=== PATIENT | female | born 1985 | race American Indian/Alaskan Native ===

== ENCOUNTER 2016-07-24 04:45 | Emergency (ER) | payer SELFPAY ==
[2016-07-24 05:40] LABS: Basophils % (Auto) 0.5 % (0.0-1.8); Eosinophils % (Auto) 1.7 % (0.0-4.3); Hematocrit 39.6 % (30.3-42.9); Hemoglobin 12.9 gm/dl (10.1-14.3); Mean Corpuscular HGB Conc 33 % (30-34); Mean Corpuscular Hemoglobin 28 pg (28-32); Mean Corpuscular Volume 86 fl (79-97); Platelet Count 193 K/mm3 (140-440); Red Blood Count 4.62 M/mm3 (3.65-5.03); Red Cell Distribution Width 13.8 % (13.2-15.2); White Blood Count 5.7 K/mm3 (4.5-11.0)
[2016-07-24 08:13] LABS: Bilirubin,Urine NEG (Negative); Blood,Urine LG (Negative); Ketones,Urine NEG (Negative); Leukocyte Esterase,Urine NEG (Negative); Nitrite,Urine NEG (Negative); Protein,Urine <15 mg/dL mg/dL (Negative); Urobilinogen,Urine < 2.0 mg/dL (<2.0)
--- NOTE | 2016-07-24 08:31 | Ultrasound Report ---
ULTRASOUND OB LESS THAN 14 WEEKS FETUS ULTRASOUND OB TRANSVAGINAL HISTORY: Vaginal bleeding during , data hCG level measures 765. TECHNIQUE: Transabdominal and transvaginal ultrasound. The uterus measures 11 x 5 x 5 cm. No uterine mass is appreciated. The endometrial stripe appears thickened on the transvaginal images measuring up to 2 cm. No intrauterine is demonstrated. Spontaneous with retained products of conception cannot be excluded. The right ovary is not visualized. The left ovary contains a 1.5 cm cyst and a large unilocular 5.2 cm cyst. No pelvic fluid collection. IMPRESSION: No intrauterine is visualized. The endometrial stripe is thickened on the transvaginal images concerning for spontaneous with retained products of conception. Please correlate with the patient's clinical presentation. Left ovarian cysts.
[2016-07-24] MEDS ORDERED: NACL 0.9% 1000 ML IV ONE (10:29)
--- NOTE | 2016-07-24 10:43 | Emergency Department Report ---
HPI - General Chief Complaint: Vaginal Bleeding Time Seen by Provider: 07/24/16 10:20 - HPI HPI: Chief complaint: Vaginal bleeding HPI: Patient is a 31-year-old female with no previous pregnancies he states her last menstrual period started 06/09/2016 and had a positive home test. Patient states she occasionally vomits after eating for the last several days and for the last 2 weeks had polyuria and polydipsia. Patient has no previous history of diabetes states her father does have diabetes. Patient is unaware for mother had gestational diabetes. Patient states she has intermittent lower abdominal cramping that is very mild and none currently. Patient states she had slight spotting yesterday but has not had any bleeding today. Mode of arrival: private car Source: Patient Began: Yesterday Duration: One day Context: See above Quality: No pain currently Severity: 0 out of 10 Improved with: Nothing Worsened with: Nothing Associated signs and symptoms: See above ED Past Medical Hx - Past Medical History Previous Medical History?: No - Family History Family history: diabetes (other) - Social History Smoking Status: Former Smoker Substance Use Type: Alcohol (occasional currently not drinking) - Medications Home Medications: Home Medications Medication Instructions Recorded Confirmed Last Taken Type glyBURIDE [Diabeta] 5 mg PO QHS #30 tablet 07/24/16 Unknown Rx ED Review of Systems ROS: Stated complaint: VAG BLEED, 6 WKS PREG Other details as noted in HPI ROS Constitutional: No fever ENT: No uri symptoms Cardiovascular: No chest pain Respiratory: No sob or cough GI: No diarrhea : No dysuria or urgency, Skin: No rash Neuro: No focal weakness or numbness Psych: No depression Dajuan/lymph: No edema Physical Exam - Physical Exam Vital Signs: Vital Signs 07/24/16 04:58 Temperature 98.1 F Pulse Rate 88 Respiratory 20 Rate Blood Pressure 154/104 O2 Sat by Pulse 100 Oximetry Physical Exam: GENERAL: The patient is an obese -Micronesian female in no acute distress. HEENT: Normocephalic. Atraumatic. Extraocular motions are intact. Patient has moist mucous membranes. NECK: Supple. No meningitic signs are noted. There is no adenopathy noted. CHEST/LUNGS: Clear to auscultation. There is no respiratory distress noted. HEART/CARDIOVASCULAR: Regular. There is no tachycardia. There is no gallop rub or murmur. ABDOMEN: Abdomen is soft, nontender. Patient has normal bowel sounds. There is no abdominal distention. SKIN: There is no rash. There is no edema. There is no diaphoresis. NEURO: The patient is awake, alert, and oriented. The patient is cooperative. The patient has no focal neurologic deficits. The patient has normal speech. MUSCULOSKELETAL: There is no tenderness or deformity. There is no limitation range of motion. There is no evidence of acute injury. ED Course Vital Signs 07/24/16 04:58 Temperature 98.1 F Pulse Rate 88 Respiratory 20 Rate Blood Pressure 154/104 O2 Sat by Pulse 100 Oximetry - Reevaluation(s) Reevaluation #1: 07/24/16 10:46 Patient's Accu-Chek was 340 and 2 L of normal saline will be started on the patient. 07/24/16 14:07 Repeat blood sugar after 2 L of normal saline and 5 units of regular insulin was 280. Patient given a third liter of normal saline. ED Medical Decision Making - Lab Data Result diagrams: 07/24/16 05:13 07/24/16 10:39 Laboratory Tests 07/24/16 07/24/16 07/24/16 05:13 11:05 Unknown VBG pH 7.351 HCG, Quant 765.1 H Ur Specific [place] 1.031 H Urine Protein <15 mg/dl Urine Glucose (UA) >=500 Urine Ketones Neg Urine Blood Lg Ur Leukocyte Esterase Neg Urine WBC (Auto) 1.0 Urine RBC (Auto) 2.0 Critical care attestation.: If time is entered above; I have spent that time in minutes in the direct care of this critically ill patient, excluding procedure time. ED Disposition Clinical Impression: Early stage of , Vaginal bleeding before 22 weeks gestation, Diabetes mellitus, new onset Disposition: DISCHARGED TO HOME OR SELFCARE Is pt being admited?: No Does the pt Need Aspirin: No Instructions: Ectopic (ED), Threatened Miscarriage (ED), Diabetes Mellitus Type 2 in Adults (ED) Prescriptions: glyBURIDE [Diabeta] 5 mg PO QHS #30 tablet Referrals: [facility] [Provider Group] - 07/26/16 9:00 am (You have an appointment with Dr. Akers at 9:00 on morning. You need to follow up.) Time of Disposition: 14:05
[2016-07-24 11:12] LABS: Anion Gap 18 mmol/L; Blood Urea Nitrogen 6 mg/dL (7-17); Calcium 9.1 mg/dL (8.4-10.2); Carbon Dioxide 23 mmol/L (22-30); Chloride 94.6 mmol/L (98-107); Glucose 362 mg/dL (65-100); Potassium 4.1 mmol/L (3.6-5.0); Sodium 131 mmol/L (137-145)
[2016-07-24] MEDS ORDERED: NACL 0.9% 1000 ML 1,000 ML ONE (13:11)
[2016-07-24] MEDS ORDERED: NACL 0.9% 1000 ML 1,000 ML IV ONE (13:28)
[2016-07-24 13:47] LABS: B-Hydroxybutyrate 1.2 mg/dL (0.2-2.8)
[2016-07-24 14:26] VITALS: BP 124/72
== END 2016-07-24 14:25 | disposition home or self-care (01) ==
LOC: ED 04:45
DX: O20.9 Hemorrhage in early pregnancy, unspecified (principal); O24.911 Unspecified diabetes mellitus in pregnancy, first trimester; Z3A.01 Less than 8 weeks gestation of pregnancy; O99.331 Smoking (tobacco) complicating pregnancy, first trimester
CPT/HCPCS: 36415; 76801; 76817; 80048; 81001; 82010; 82805; 82962; 84702; 85025; 86850; 86900; 86901; 96361; 96374; 99284; J7030; J1815

== ENCOUNTER 2016-08-09 03:12 | Emergency (ER) | payer MEDICAID ==
[2016-08-09 04:14] LABS: Basophils % (Auto) 0.6 % (0.0-1.8); Eosinophils % (Auto) 2.5 % (0.0-4.3); Hematocrit 36.4 % (30.3-42.9); Hemoglobin 11.9 gm/dl (10.1-14.3); Mean Corpuscular HGB Conc 33 % (30-34); Mean Corpuscular Hemoglobin 28 pg (28-32); Mean Corpuscular Volume 86 fl (79-97); Platelet Count 218 K/mm3 (140-440); Red Blood Count 4.23 M/mm3 (3.65-5.03); Red Cell Distribution Width 13.8 % (13.2-15.2); White Blood Count 6.3 K/mm3 (4.5-11.0)
[2016-08-09 04:25] LABS: Anion Gap 19 mmol/L; Blood Urea Nitrogen 10 mg/dL (7-17); Carbon Dioxide 20 mmol/L (22-30); Chloride 100.1 mmol/L (98-107); Glucose 155 mg/dL (65-100); Sodium 135 mmol/L (137-145)
--- NOTE | 2016-08-09 05:40 | Ultrasound Report ---
FINAL REPORT PROCEDURE: US OB EARLY TECHNIQUE: Real-time transabdominal sonography of the uterus, placenta, amniotic fluid, adnexa, and fetus was performed with image documentation. Measurements were obtained to determine age/size. M-mode Doppler was used to document heartbeat. HISTORY: /VAG BLEEDING COMPARISON: No prior studies are available for comparison. FINDINGS: There is an intrauterine gestational sac measuring 11 millimeters corresponding to an estimated gestational age of 5 weeks and 6 days. Estimated date of delivery is 04/05/2017. No pole, yolk sac or cardiac activity is identified at this time. There is suboptimal visualization of the ovaries. The uterus is unremarkable. There is no free pelvic fluid. IMPRESSION: Probable normal early intrauterine gestation. Followup is recommended.
--- NOTE | 2016-08-09 05:40 | Ultrasound Report ---
FINAL REPORT PROCEDURE: US OB TRANSVAGINAL TECHNIQUE: Real-time transvaginal sonography of the uterus, placenta, amniotic fluid, adnexa, and fetus was performed with image documentation. Measurements were obtained to determine age/size. M-mode Doppler was used to document heartbeat. CPT 54096 HISTORY: /VAG BLEEDING COMPARISON: No prior studies are available for comparison. FINDINGS: There is an intrauterine gestational sac measuring 11 millimeters corresponding to an estimated gestational age of 5 weeks and 6 days. Estimated date of delivery is 04/05/2017. No pole, yolk sac or cardiac activity is identified at this time. There is suboptimal visualization of the ovaries. The uterus is unremarkable. There is no free pelvic fluid. IMPRESSION: Probable normal early intrauterine gestation. Followup is recommended.
--- NOTE | 2016-08-09 10:34 | Emergency Department Report ---
HPI - General Chief Complaint: Vaginal Bleeding Time Seen by Provider: 08/09/16 10:19 - HPI HPI: Chief complaint: Vaginal bleeding during HPI: Patient to his and had an earlier ultrasound 2 weeks ago showing no IUP began bleeding last night. Patient is having some cramping. Patient states she used 2 pads through the night. Is patient's first . Mode of arrival: private car Source: Patient Began: Last night Duration: Continuous Context: Patient was here 2 weeks ago with spotting. Quality: Crampy Severity: 6 out of 10 Improved with: Nothing Worsened with: Nothing Associated signs and symptoms: No nausea vomiting or fever ED Past Medical Hx - Past Medical History Previous Medical History?: Yes Hx Diabetes: Yes - Surgical History Past Surgical History?: No - Social History Smoking Status: Current Some Day Smoker - Medications Home Medications: Home Medications Medication Instructions Recorded Confirmed Last Taken Type glyBURIDE [Diabeta] 5 mg PO QHS #30 tablet 07/24/16 Unknown Rx ED Review of Systems ROS: Stated complaint: POSS MISCARRIAGE Other details as noted in HPI ROS Constitutional: No fever ENT: No uri symptoms Cardiovascular: No chest pain Respiratory: No sob or cough GI: No nausea vomiting or diarrhea : No dysuria frequency or urgency, Skin: No rash Neuro: No focal weakness or numbness Psych: No depression Dajuan/lymph: No edema Physical Exam - Physical Exam Vital Signs: Vital Signs 08/09/16 08/09/16 08/09/16 03:20 08:08 08:11 Temperature 98.5 F Pulse Rate 82 Respiratory 20 Rate Blood Pressure 140/99 129/64 129/64 Blood Pressure [Left] O2 Sat by Pulse 100 100 Oximetry 08/09/16 08/09/16 08/09/16 08:21 08:27 08:28 Temperature 98.1 F Pulse Rate 88 Respiratory 18 18 Rate Blood Pressure 128/83 Blood Pressure 128/77 [Left] O2 Sat by Pulse 100 100 Oximetry Physical Exam: GENERAL: The patient is well-developed well-nourished . HEENT: Normocephalic. Atraumatic. Extraocular motions are intact. Patient has moist mucous membranes. NECK: Supple. No meningitic signs are noted. There is no adenopathy noted. CHEST/LUNGS: Clear to auscultation. There is no respiratory distress noted. HEART/CARDIOVASCULAR: Regular. There is no tachycardia. There is no gallop rub or murmur. ABDOMEN: Abdomen is soft, nontender. Patient has normal bowel sounds. There is no abdominal distention. Pelvic exam: Os closed a few blood clots and minimal bleeding. SKIN: There is no rash. There is no edema. There is no diaphoresis. NEURO: The patient is awake, alert, and oriented. The patient is cooperative. The patient has no focal neurologic deficits. The patient has normal speech. MUSCULOSKELETAL: There is no tenderness or deformity. There is no limitation range of motion. There is no evidence of acute injury. ED Course Vital Signs 08/09/16 08/09/16 08/09/16 03:20 08:08 08:11 Temperature 98.5 F Pulse Rate 82 Respiratory 20 Rate Blood Pressure 140/99 129/64 129/64 Blood Pressure [Left] O2 Sat by Pulse 100 100 Oximetry 08/09/16 08/09/16 08/09/16 08:21 08:27 08:28 Temperature 98.1 F Pulse Rate 88 Respiratory 18 18 Rate Blood Pressure 128/83 Blood Pressure 128/77 [Left] O2 Sat by Pulse 100 100 Oximetry ED Medical Decision Making - Lab Data Result diagrams: 08/09/16 03:55 08/09/16 03:55 - Radiology Data Radiology results: report reviewed (IUP 5 weeks 6 days no pole) Critical care attestation.: If time is entered above; I have spent that time in minutes in the direct care of this critically ill patient, excluding procedure time. ED Disposition Clinical Impression: Threatened miscarriage Disposition: DISCHARGED TO HOME OR SELFCARE Is pt being admited?: No Does the pt Need Aspirin: No Condition: Stable Instructions: Threatened Miscarriage (ED) Referrals: [facility] [Provider Group] - 3-5 Days Time of Disposition: 11:08
[2016-08-09 11:16] LABS: Bilirubin,Urine NEG (Negative); Blood,Urine LG (Negative); Ketones,Urine TR mg/dL (Negative); Leukocyte Esterase,Urine NEG (Negative); Nitrite,Urine NEG (Negative); Urobilinogen,Urine < 2.0 mg/dL (<2.0)
[2016-08-09 11:27] LABS: RBC,Urine > 182.0 /HPF (0.0-6.0)
[2016-08-09 12:40] VITALS: BP 122/79
== END 2016-08-09 11:09 | disposition home or self-care (01) ==
LOC: ED 03:12
DX: O20.0 Threatened abortion (principal); O24.911 Unspecified diabetes mellitus in pregnancy, first trimester; O99.331 Smoking (tobacco) complicating pregnancy, first trimester; F17.200 Nicotine dependence, unspecified, uncomplicated; Z3A.01 Less than 8 weeks gestation of pregnancy
CPT/HCPCS: 36415; 76801; 76817; 80048; 81001; 84702; 85025; 86850; 86900; 86901; 99284

== ENCOUNTER 2017-06-24 16:19 | Inpatient (IN) | payer OTHER ==
[2017-06-24] MEDS ORDERED: BRETHINE SUB-Q PRN (17:14)
[2017-06-24] MEDS ORDERED: BRETHINE IVP PRN (17:14)
[2017-06-24] MEDS ORDERED: MINERAL OIL PO PRN (17:14)
[2017-06-24] MEDS ORDERED: XYLOCAINE 2% INFILTRATI ONE (17:14)
[2017-06-24] MEDS ORDERED: ePHEDrine SULFATE IV PRN (17:14)
[2017-06-24] MEDS ORDERED: STADOL IV PRN (17:14)
--- NOTE | 2017-06-24 17:21 | History and Physical Report ---
History of Present Illness Date of admission: 06/24/17 16:19 Chief complaint: 32 yo at 37 wk+ 4d EGA with EDC of 07/11/17 sent over for induction of labor from [facility] for oligohydramnios with JYOTI of 4. She also has DM 2 which has been controlled on Metformin after the patient declined to be treated with insulin and her control has improved somewhat although she readily admits to not taking the prescribed dose of 1000mg bid but only taking 500mg bid of Metformin. BPP 8 /8 today and recent EFW was 6#1 oz. No history of SROM Cervix exam has improved from 2 weeks ago. Vertex, FT, 30% and -3 but no longer unengaged. 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 Weight (lb): 184 BMI: 37.2 BP: 120/ 90 mm Hg Ur. Protein: Trace Ur. Glucose: Negative Chief Complaint/Current Status: pt presents c/o missed period; last pap unknown ...................................................................Aziza Rai February 05, 2017 10:14 AM Menstrual History Regularity: regular Menses every: 28 days Duration: 5 LMP: 09/2016 LMP reliability: month known LMP character: normal test type: urine test Date: 02/05/2017 BC at conception: none Planned ? no EDC Calculations LMP: 02/28/2016 EDC Confirmation: 07/11/2017 Gestational Age: 17 5/7 weeks Past History : 2 Para: 0 Spont. Ab: 1 # 1 Delivery date: 08/2016 Weeks Gestation: 5 Delivery type: SAB Comments: no complications Past Medical History: Reviewed history from 08/13/2016 and no changes required: Diabetes type 2 on po meds DX 07-24-16 Past Surgical History: Reviewed history from 08/13/2016 and no changes required: Negative Past Surgical History Past Medical History Abnormal PAP: negative KOBE Exposure: negative Infertility: negative Uterine Anomaly: negative Uterine Surgery (not C/S): negative Other Gynecologic Problems: negative Social Hx: Patient is single Smoking History: Patient has never smoked. Infection History Hx of STD: none Personal hx. of genital herpes: no Partner hx. of genital herpes: no Rash, Viral, or Febrile illness since last LMP? no Varicella/Chicken Pox Status: Previous Disease TB Risk: no Genetic History Congenital Heart Defect: Mom: no Dad: no Dm Disease: Mom: no Dad: no Thalassemia Mom: no Dad: no Neural Tube Defect Mom: no Dad: no Down's Syndrome Mom: no Dad: no Martin-Sachs Mom: no Dad: no Sickle Cell Disease/Trait Mom: no Dad: no Hemophilia Mom: no Dad: no Muscular Dystrophy Mom: no Dad: no Cystic Fibrosis Mom: no Dad: no Ludwin Chorea Mom: no Dad: no Mental Retardation Mom: no Dad: no Fragile X Mom: no Dad: no Other Genetic/Chromosomal Disorder Mom: no Dad: no Child w/other defect Mom: no Dad: no Enviromental Exposures Xray Exposure: no Medication, drug, or alcohol use since LMP: no Chemical/Other Exposure: no Exposure to Cat Liter: no Hx of Parvovirus (Fifth Disease): no Occupational Exposure to Children: none Active Medications (reviewed today): GLYBURIDE 5MG () one po QHS GLYBURIDE 5 MG ORAL TABS (GLYBURIDE) VITAMINS TABS ( MV & MIN W/FE-FA TABS) Current Allergies (reviewed today): No known allergies Laboratory Results Routine Urinalysis Leukocytes: negative Nitrite: negative Urobilinogen: negative Protein: Trace Blood: negative Ketone: negative Bilirubin: negative Glucose: Negative Urine HCG: positive Review of Systems General Denies fever, chills, sweats, anorexia, fatigue, weakness, malaise, weight loss and sleep disorder. Denies nausea, vomiting, headache, swelling of legs, abdominal pain, vaginal discharge, vaginal bleeding and contractions. Denies vaginal discharge, incontinence, dysuria, hematuria, urinary frequency, amenorrhea, menorrhagia, abnormal vaginal bleeding, pelvic pain, genital sores, decreased libido, painful periods, painful sex, urinary urgency, hot flashes, vaginal dryness, vaginal itching and vaginal odor. CV Denies chest pains, palpitations, syncope, dyspnea on exertion, orthopnea, PND and peripheral edema. Resp Denies cough, dyspnea at rest, excessive sputum, hemoptysis, wheezing and pleurisy. GI Denies nausea, vomiting, diarrhea, constipation, change in bowel habits, abdominal pain, melena, hematochezia, jaundice, gas/bloating, indigestion/ heartburn, dysphagia and odynophagia. Endo Denies cold intolerance, heat intolerance, polydipsia, polyphagia, polyuria and unusual weight change. Breast Denies left breast lump, right breast lump, nipple discharge, bloody discharge from nipple, breast pain, abnormal mammogram and breast enlargement. MS Denies back pain, joint pain, joint swelling, muscle cramps, muscle weakness, stiffness, arthritis, sciatica, restless legs, leg pain at night and leg pain with exertion. Derm Denies rash, itching, dryness and suspicious lesions. Neuro Denies paralysis, paresthesias, headache, seizures, tremors, vertigo, transient blindness, frequent falls, frequent headaches and difficulty walking. Psych Denies depression, anxiety, irritability and mood swings. Eyes Denies blurring, diplopia, irritation, discharge, vision loss, eye pain and photophobia. ENT Denies earache, ear discharge, tinnitus, decreased hearing, nasal congestion, nosebleeds, sore throat and hoarseness. Allergy Denies urticaria, allergic rash, hay fever and recurrent infections. Heme Denies abnormal bruising, bleeding and enlarged lymph nodes. PHYSICAL EXAM HEENT: PERRLA, normal conjunctiva, external nose and nasal mucosa normal, oropharynx clear Neck/Thyroid: supple, thyroid normal Skin no significant abnormal lesions or rashes Chest: respiratory effort normal, clear to auscultation Breasts: normal without skin changes or masses CV: regular, normal S1-S2, no murmur, no rub, no gallop Abdomen: normal bowel sounds, soft, nontender, no HSM Musculoskeletal: grossly normal ROM in joints, no joint tenderness or muscle weakness Neuro: grossly normal DTRs, sensation, strength, cranial nerves Extremities: no clubbing, cyanosis, or edema Flowsheet View for Follow-up Visit Estimated weeks of gestation: 17 5/7 Weight: 184 Blood pressure: 120 / 90 Urine protein: Trace Urine glucose: Negative Urine nitrite: negative Infant's Physician: undecided Education Provided: 1) Education provided today and information packet given. 2) Education packet given; please call if you have any questions. 3) Advice on healthy diet for reviewed and information provided. 4) Review normal weight gain and proper nutrition during . 5) Elevate head of bed at least 6 inches (raise bed posts not just with pillows ); small frequent meals and take TUMS as needed. 6) Stressed importance of good dental care and information given. 7) Stressed the risks of alcohol and drug use in including risk of premature delivery, small baby (SGA), abruption, and . 8) Hazards of smoking and reviewed; smoking cessation strongly encouraged and smoking cessation techniques reviewed. 9) Advised to avoid intimate contact with cats, avoid cat litter, and the ingestion of raw meat. 10) Reviewed recommended physical activity level during . 11) Seat belt use during reviewed. 12) Patient Will deliver at [facility]. 13) car seat safety reviewed and information given. 14) Family support system evaluated. 15) Adjustment in family roles after the of the baby discussed. 16) Normal spontaneous vaginal delivery () anticipated at this time. Medications and Allergies Allergies Allergy/AdvReac Type Severity Reaction Status Date / Time No Known Allergies Allergy Unverified 07/24/16 04:57 Home Medications Medication Instructions Recorded Confirmed Last Taken Type glyBURIDE [Diabeta] 5 mg PO QHS #30 tablet 07/24/16 Unknown Rx Results Result Diagrams: 06/24/17 17:12 All other labs normal. Assessment and Plan - Patient Problems (1) Oligohydramnios Current Visit: Yes Status: Acute (2) Diabetes type 2, uncontrolled Current Visit: Yes Status: Acute (3) with 37 or more completed weeks gestation Current Visit: Yes Status: Acute
[2017-06-24] MEDS ORDERED: PITOCin/NS 20 UNIT/1000ML DRIP 20 UNITS/1,000 ML BAG IV SCH (18:00)
[2017-06-24] MEDS ORDERED: CERVIDIL VG ONE (18:00)
[2017-06-24 18:04] LABS: Hematocrit 37.3 % (30.3-42.9); Hemoglobin 12.5 gm/dl (10.1-14.3); Mean Corpuscular HGB Conc 33 % (30-34); Mean Corpuscular Hemoglobin 29 pg (28-32); Mean Corpuscular Volume 87 fl (79-97); Red Blood Count 4.29 M/mm3 (3.65-5.03); Red Cell Distribution Width 14.7 % (13.2-15.2)
[2017-06-24 18:11] LABS: Platelet Count 179 K/mm3 (140-440)
[2017-06-24] MEDS: LACTATED RINGERS 1,000 ML IV SCH (20:32)
[2017-06-24] MEDS ORDERED: POLYCILLIN/NS 1 GM/50 ML 1 GM/50 ML BAG IV SCH (21:19)
[2017-06-25] MEDS: SUBLIMAZE IV PRN (02:51)
--- NOTE | 2017-06-25 07:32 | Progress Note ---
Assessment and Plan Patient doing well, c/o cramping and contractions over night with cervidil. Plan reviewed to d/c cervidil @ 0830, regular meal and AM care then start pitocin. all questions addressed, verbalized understanding. - Patient Problems (1) Diabetes type 2, uncontrolled Current Visit: Yes Status: Acute Qualifiers: Diabetes mellitus complication status: without complication (2) Oligohydramnios Current Visit: Yes Status: Acute Qualifiers: Trimester: third trimester Plan to address problem: JYOTI 4 at [facility] yesterday (3) with 37 or more completed weeks gestation Current Visit: Yes Status: Acute Subjective - Subjective Date of service: 06/25/17 Principal diagnosis: IUP @ 37+5 weeks, DM, oligio Patient reports: no new complaints Objective - Vital Signs Vital Signs: Vital Signs - 12hr 06/24/17 06/25/17 06/25/17 23:32 00:01 02:58 Temperature 98.2 F Pulse Rate 75 98 H Respiratory 20 Rate Blood Pressure 128/71 Blood Pressure [Left] O2 Sat by Pulse 98 Oximetry 06/25/17 06/25/17 06/25/17 03:03 03:08 03:13 Temperature Pulse Rate 93 H 78 74 Respiratory Rate Blood Pressure Blood Pressure [Left] O2 Sat by Pulse 98 98 98 Oximetry 06/25/17 06/25/17 06/25/17 03:18 03:23 03:28 Temperature Pulse Rate 74 72 73 Respiratory Rate Blood Pressure Blood Pressure [Left] O2 Sat by Pulse 96 96 96 Oximetry 06/25/17 06/25/17 06/25/17 03:33 03:38 03:43 Temperature Pulse Rate 71 75 73 Respiratory Rate Blood Pressure Blood Pressure [Left] O2 Sat by Pulse 97 96 96 Oximetry 06/25/17 06/25/17 06/25/17 03:48 03:53 03:58 Temperature Pulse Rate 72 74 73 Respiratory Rate Blood Pressure Blood Pressure [Left] O2 Sat by Pulse 96 96 95 Oximetry 06/25/17 06/25/17 06/25/17 04:03 04:08 04:13 Temperature Pulse Rate 75 74 74 Respiratory Rate Blood Pressure Blood Pressure [Left] O2 Sat by Pulse 96 96 97 Oximetry 06/25/17 06/25/17 06/25/17 04:18 04:23 04:28 Temperature Pulse Rate 73 78 74 Respiratory Rate Blood Pressure Blood Pressure [Left] O2 Sat by Pulse 95 96 96 Oximetry 06/25/17 06/25/17 06/25/17 04:33 04:38 04:43 Temperature Pulse Rate 75 74 77 Respiratory Rate Blood Pressure Blood Pressure [Left] O2 Sat by Pulse 96 96 96 Oximetry 06/25/17 06/25/17 06/25/17 04:48 04:53 04:58 Temperature Pulse Rate 78 77 77 Respiratory Rate Blood Pressure Blood Pressure [Left] O2 Sat by Pulse 97 96 96 Oximetry 06/25/17 06/25/17 06/25/17 05:03 05:09 05:10 Temperature Pulse Rate 79 77 Respiratory Rate Blood Pressure 134/75 Blood Pressure [Left] O2 Sat by Pulse 96 94 Oximetry 06/25/17 06/25/17 06/25/17 05:16 07:04 07:07 Temperature 97.1 F L 98.5 F Pulse Rate 82 73 Respiratory 20 18 Rate Blood Pressure 133/74 Blood Pressure 133/74 [Left] O2 Sat by Pulse 95 Oximetry 06/25/17 06/25/17 06/25/17 07:09 07:14 07:19 Temperature Pulse Rate 70 75 73 Respiratory Rate Blood Pressure Blood Pressure [Left] O2 Sat by Pulse 97 94 95 Oximetry 06/25/17 07:24 Temperature Pulse Rate 80 Respiratory Rate Blood Pressure Blood Pressure [Left] O2 Sat by Pulse 95 Oximetry - Exam Breasts: normal Cardiovascular: Regular rate Lungs: Clear to auscultation, Normal air movement Abdomen: Present: normal appearance, soft, normal bowel sounds Vulva: both: normal Uterus: Present: normal FHR: auscultation normal, category 1 Uterine Contraction Monitor Mode: External Uterine Contraction Pattern: Irregular Uterine Tone Measurement Phase: Contraction Uterine Contraction Intensity: Mild Extremities: normal Deep Tendon Reflex Grade: Normal +2 - Labs Labs: Laboratory Results - last 24 hr 06/24/17 06/24/17 17:12 17:12 WBC 5.5 RBC 4.29 Hgb 12.5 Hct 37.3 MCV 87 MCH 29 MCHC 33 RDW 14.7 Plt Count 179 Blood Type O POSITIVE Antibody Screen Negative
[2017-06-25] MEDS: PITOCin/NS 30 UNIT/500ML 30 UNITS/500 ML BAG IV SCH ×2 (10:45→11:25)
[2017-06-25] MEDS: LACTATED RINGERS 1,000 ML IV SCH (11:27)
[2017-06-25] MEDS ORDERED: AMBIEN PO PRN (17:26)
--- NOTE | 2017-06-25 17:26 | Progress Note ---
Assessment and Plan no cervical change, cervix remains unfavorable. Plan discussed to d/c pitocin, allow regular diet and patient may ambulate x1 hour with reactive tracing. Plan to replace cervidil tonight. All questions addressed, verbalized understanding. Dr. Florez aware of patient's status and plan. - Patient Problems (1) Diabetes type 2, uncontrolled Current Visit: Yes Status: Acute Qualifiers: Diabetes mellitus complication status: without complication (2) Oligohydramnios Current Visit: Yes Status: Acute Qualifiers: Fetus number: single or unspecified fetus Trimester: third trimester Qualified Code(s): O41.03X0 - Oligohydramnios, third trimester, not applicable or unspecified (3) with 37 or more completed weeks gestation Current Visit: Yes Status: Acute Subjective - Subjective Date of service: 06/25/17 Principal diagnosis: IUP @ 37+5 weeks, DM, oligio Patient reports: no new complaints Objective - Vital Signs Vital Signs: Vital Signs - 12hr 06/25/17 06/25/17 06/25/17 07:04 07:07 07:09 Temperature 98.5 F Pulse Rate 82 73 70 Respiratory 18 Rate Blood Pressure 133/74 Blood Pressure 133/74 [Left] O2 Sat by Pulse 95 97 Oximetry 06/25/17 06/25/17 06/25/17 07:14 07:19 07:24 Temperature Pulse Rate 75 73 80 Respiratory Rate Blood Pressure Blood Pressure [Left] O2 Sat by Pulse 94 95 95 Oximetry 06/25/17 06/25/17 06/25/17 10:42 12:32 12:37 Temperature Pulse Rate 67 66 69 Respiratory Rate Blood Pressure Blood Pressure [Left] O2 Sat by Pulse 94 97 98 Oximetry 06/25/17 06/25/17 06/25/17 12:42 12:47 12:52 Temperature Pulse Rate 76 75 72 Respiratory Rate Blood Pressure Blood Pressure [Left] O2 Sat by Pulse 99 98 98 Oximetry 06/25/17 06/25/17 06/25/17 12:57 13:02 13:07 Temperature Pulse Rate 75 69 73 Respiratory Rate Blood Pressure Blood Pressure [Left] O2 Sat by Pulse 97 97 98 Oximetry 06/25/17 06/25/17 06/25/17 13:12 13:17 13:21 Temperature Pulse Rate 69 69 Respiratory Rate Blood Pressure Blood Pressure [Left] O2 Sat by Pulse 97 97 86 Oximetry 06/25/17 06/25/17 06/25/17 13:22 13:27 13:32 Temperature Pulse Rate 70 70 65 Respiratory Rate Blood Pressure Blood Pressure [Left] O2 Sat by Pulse 99 99 97 Oximetry 06/25/17 06/25/17 06/25/17 13:37 13:42 13:47 Temperature Pulse Rate 73 75 69 Respiratory Rate Blood Pressure Blood Pressure [Left] O2 Sat by Pulse 99 98 98 Oximetry 06/25/17 06/25/17 06/25/17 13:52 13:57 14:02 Temperature Pulse Rate 68 68 68 Respiratory Rate Blood Pressure Blood Pressure [Left] O2 Sat by Pulse 98 98 98 Oximetry 06/25/17 06/25/17 06/25/17 14:07 14:12 16:12 Temperature Pulse Rate 71 69 75 Respiratory Rate Blood Pressure 133/78 Blood Pressure [Left] O2 Sat by Pulse 98 98 Oximetry 06/25/17 17:02 Temperature Pulse Rate 68 Respiratory Rate Blood Pressure 127/86 Blood Pressure [Left] O2 Sat by Pulse Oximetry - Exam Breasts: normal Cardiovascular: Regular rate Lungs: Clear to auscultation, Normal air movement Abdomen: Present: normal appearance, soft Vulva: both: normal Uterus: Present: normal FHR: auscultation normal, category 1 Uterine Contraction Monitor Mode: External Cervical Dilatation: 1 Cervical Effacement Percentage: 30 station: -3 Uterine Contraction Frequency (min): 2-3 Uterine Contraction Duration: 60 Uterine Contraction Pattern: Regular Uterine Tone Measurement Phase: Contraction Uterine Contraction Intensity: Moderate Extremities: normal Deep Tendon Reflex Grade: Normal +2 - Labs Labs: Laboratory Results - last 24 hr 06/24/17 06/24/17 06/24/17 17:12 17:12 17:12 WBC 5.5 RBC 4.29 Hgb 12.5 Hct 37.3 MCV 87 MCH 29 MCHC 33 RDW 14.7 Plt Count 179 RPR Nonreactive Blood Type O POSITIVE Antibody Screen Negative
[2017-06-25] MEDS ORDERED: CERVIDIL VG ONE (18:26)
[2017-06-26] MEDS: SUBLIMAZE IV PRN (00:08)
[2017-06-26] MEDS ORDERED: GLUCOPHAGE PO SCH (08:00)
--- NOTE | 2017-06-26 09:30 | Progress Note ---
Assessment and Plan - Patient Problems (1) Diabetes type 2, uncontrolled Current Visit: Yes Status: Acute Qualifiers: Diabetes mellitus complication status: without complication Plan to address problem: pt anxious to move forward Ask for c/s Strongly encouraged pt to try IOL today Will bolus for epidural AM care Start pitocin per protocol. All questions addressed. SVE 2-3,50,-2 (2) Oligohydramnios Current Visit: Yes Status: Acute Qualifiers: Fetus number: single or unspecified fetus Trimester: third trimester Qualified Code(s): O41.03X0 - Oligohydramnios, third trimester, not applicable or unspecified Subjective - Subjective Date of service: 06/26/17 (pt A&O Agrees to move forward with IOL; desires epidural) Principal diagnosis: IUP @ 37+6 weeks, DM, oligio Patient reports: movement normal, no new complaints Objective - Vital Signs Vital Signs: Vital Signs - 12hr 06/25/17 06/25/17 06/25/17 22:28 22:29 22:34 Temperature Pulse Rate 80 82 81 Respiratory Rate Blood Pressure 122/65 O2 Sat by Pulse 97 97 Oximetry 06/25/17 06/25/17 06/25/17 22:39 22:44 22:49 Temperature Pulse Rate 77 76 74 Respiratory Rate Blood Pressure O2 Sat by Pulse 97 96 98 Oximetry 06/25/17 06/25/17 06/25/17 22:54 22:59 23:00 Temperature 97.8 F Pulse Rate 76 75 Respiratory 18 Rate Blood Pressure O2 Sat by Pulse 96 97 Oximetry 06/25/17 06/25/17 06/25/17 23:04 23:09 23:14 Temperature Pulse Rate 72 75 78 Respiratory Rate Blood Pressure O2 Sat by Pulse 96 96 97 Oximetry 06/25/17 06/26/17 06/26/17 23:19 02:24 02:25 Temperature 98.3 F Pulse Rate 75 77 Respiratory 20 Rate Blood Pressure 134/60 O2 Sat by Pulse 97 98 Oximetry 06/26/17 06/26/17 05:59 06:00 Temperature 98.2 F Pulse Rate 73 Respiratory 18 Rate Blood Pressure 132/73 O2 Sat by Pulse Oximetry - Exam Breasts: normal Cardiovascular: Regular rate Lungs: Normal air movement Abdomen: Present: normal appearance, soft. Absent: distention, tenderness Uterus: Present: normal FHR: auscultation normal, category 1 Uterine Contraction Monitor Mode: External Cervical Dilatation: 2.5 Cervical Effacement Percentage: 50 station: -2 Uterine Contraction Pattern: Irregular Uterine Tone Measurement Phase: Resting Uterine Contraction Intensity: Mild Extremities: edema Deep Tendon Reflex Grade: Normal +2 - Labs Labs: Abnormal Labs 06/25/17 06/26/17 06/26/17 20:16 05:57 06:55 Creatinine 0.4 L POC Glucose 133 H 68 L Laboratory Results - last 24 hr 06/24/17 06/25/17 06/26/17 17:12 20:16 05:57 Creatinine Estimated GFR POC Glucose 133 H 68 L RPR Nonreactive 06/26/17 06:55 Creatinine 0.4 L Estimated GFR > 60 POC Glucose RPR
[2017-06-26] MEDS: LACTATED RINGERS 1,000 ML IV SCH ×2 (10:28→11:24)
[2017-06-26] MEDS ORDERED: PITOCin/NS 30 UNIT/500ML 30 UNITS/500 ML BAG IV SCH (11:00)
[2017-06-26] MEDS ORDERED: NARCAN 2 MG/2 ML IV PRN (12:35)
[2017-06-26] MEDS ORDERED: ePHEDrine SULFATE IV PRN (12:35)
--- NOTE | 2017-06-26 12:36 | Anesthesia Consultation ---
Anesthesia Consult and Med Hx Date of service: 06/26/17 - Airway Anesthetic Teeth Evaluation: Good ROM Head & Neck: Adequate Mental/Hyoid Distance: Adequate Mallampati Class: Class II Intubation Access Assessment: Probably Good - Pulmonary Exam CTA: Yes - Cardiac Exam Cardiac Exam: RRR - Pre-Operative Health Status ASA Pre-Surgery Classification: ASA2 Proposed Anesthetic Plan: Epidural, Spinal - Pulmonary Hx Asthma: No COPD: No Hx Pneumonia: No - Cardiovascular System Hx Hypertension: No - Central Nervous System Hx Seizures: No Hx Psychiatric Problems: No - Endocrine Hx Renal Disease: No Hx End Stage Renal Disease: No Hx Hypothyroidism: No Hx Hyperthyroidism: No - Hematic Hx Anemia: No Hx Sickle Cell Disease: No - Other Systems Hx Alcohol Use: No Hx Obesity: Yes - Additional Comments Anesthesia Medical History Comments: +IUP
--- NOTE | 2017-06-26 12:41 | Progress Note ---
Assessment and Plan - Patient Problems (1) Diabetes type 2, uncontrolled Onset Date: Unknown Current Visit: Yes Status: Acute Qualifiers: Diabetes mellitus complication status: without complication Plan to address problem: continue metformin BID Monitor BS (2) Oligohydramnios Onset Date: ~06/26/17 Current Visit: Yes Status: Acute Qualifiers: Fetus number: single or unspecified fetus Trimester: third trimester Qualified Code(s): O41.03X0 - Oligohydramnios, third trimester, not applicable or unspecified Plan to address problem: Pt comfortable with epidural Pit @ 12 mu ISE / IUPC placed Re-eval as needed Subjective - Subjective Date of service: 06/26/17 (pt comfortable with epidural) Principal diagnosis: IUP @ 37+6 weeks, DM, oligio Patient reports: movement normal, no new complaints Objective - Vital Signs Vital Signs: Vital Signs - 12hr 06/26/17 06/26/17 06/26/17 02:24 02:25 05:59 Temperature 98.3 F Pulse Rate 77 73 Respiratory 20 Rate Blood Pressure 134/60 132/73 Blood Pressure [Left] O2 Sat by Pulse 98 Oximetry 06/26/17 06/26/17 06/26/17 06:00 09:56 09:59 Temperature 98.2 F 97.6 F Pulse Rate 78 117 H Respiratory 18 Rate Blood Pressure 117/62 Blood Pressure 117/62 [Left] O2 Sat by Pulse Oximetry 06/26/17 06/26/17 06/26/17 11:30 11:48 11:55 Temperature Pulse Rate 75 76 83 Respiratory Rate Blood Pressure 123/78 118/75 Blood Pressure [Left] O2 Sat by Pulse 100 Oximetry 06/26/17 06/26/17 06/26/17 11:56 11:58 12:00 Temperature Pulse Rate 78 76 77 Respiratory Rate Blood Pressure 119/79 119/76 125/78 Blood Pressure [Left] O2 Sat by Pulse 100 Oximetry 06/26/17 06/26/17 06/26/17 12:02 12:04 12:05 Temperature Pulse Rate 71 77 77 Respiratory Rate Blood Pressure 133/82 129/80 Blood Pressure [Left] O2 Sat by Pulse 100 Oximetry 06/26/17 06/26/17 06/26/17 12:06 12:08 12:10 Temperature Pulse Rate 77 82 85 Respiratory Rate Blood Pressure 144/83 144/88 139/87 Blood Pressure [Left] O2 Sat by Pulse 99 Oximetry 06/26/17 06/26/17 06/26/17 12:12 12:14 12:15 Temperature Pulse Rate 82 81 82 Respiratory Rate Blood Pressure 138/86 135/82 Blood Pressure [Left] O2 Sat by Pulse 98 Oximetry 06/26/17 06/26/17 06/26/17 12:16 12:17 12:18 Temperature Pulse Rate 93 H 34 L 82 Respiratory Rate Blood Pressure 125/88 129/81 Blood Pressure [Left] O2 Sat by Pulse 86 Oximetry 06/26/17 06/26/17 06/26/17 12:20 12:22 12:24 Temperature Pulse Rate 84 83 76 Respiratory Rate Blood Pressure 128/86 130/82 127/81 Blood Pressure [Left] O2 Sat by Pulse 98 Oximetry 06/26/17 06/26/17 06/26/17 12:25 12:26 12:28 Temperature Pulse Rate 77 77 76 Respiratory Rate Blood Pressure 136/86 133/83 Blood Pressure [Left] O2 Sat by Pulse 98 Oximetry 06/26/17 06/26/17 12:30 12:35 Temperature Pulse Rate 76 85 Respiratory Rate Blood Pressure Blood Pressure [Left] O2 Sat by Pulse 97 99 Oximetry - Exam Breasts: deferred Cardiovascular: Regular rate Lungs: Normal air movement Abdomen: Present: normal appearance, soft, normal bowel sounds Uterus: Present: normal Uterine Contraction Monitor Mode: Internal Cervical Dilatation: 2 (ISE/IUPC inserted) Cervical Effacement Percentage: 50 station: -2 Uterine Contraction Pattern: Regular Uterine Tone Measurement Phase: Resting Uterine Contraction Intensity: Moderate Extremities: normal Deep Tendon Reflex Grade: Normal +2 - Labs Labs: Abnormal Labs 06/25/17 06/26/17 06/26/17 20:16 05:57 06:55 Creatinine 0.4 L POC Glucose 133 H 68 L Laboratory Results - last 24 hr 06/25/17 06/26/17 06/26/17 20:16 05:57 06:55 Creatinine 0.4 L Estimated GFR > 60 POC Glucose 133 H 68 L
[2017-06-26] MEDS ORDERED: fentaNYL-BUPIV 2 MCG/ML-0.125% 200 MCG/100 ML BAG EPIDURAL SCH (13:00)
[2017-06-26] MEDS ORDERED: MARCAINE-EPI/PF 0.5%-1:200,000 INFILTRATI ONE (13:47)
--- NOTE | 2017-06-26 15:48 | Progress Note ---
Assessment and Plan - Patient Problems (1) Diabetes type 2, uncontrolled Onset Date: Unknown Current Visit: Yes Status: Acute Qualifiers: Diabetes mellitus complication status: without complication (2) Oligohydramnios Onset Date: ~06/26/17 Current Visit: Yes Status: Acute Qualifiers: Fetus number: single or unspecified fetus Trimester: third trimester Qualified Code(s): O41.03X0 - Oligohydramnios, third trimester, not applicable or unspecified Plan to address problem: Pit @ 24mu Position chges done SVE No chg. Pt turned to extreme right side Pit increased to 28mu. Will re-eval 1 hour. aware. Subjective - Subjective Date of service: 06/26/17 (pt c/o back pain and pressure) Principal diagnosis: IUP @ 37+6 weeks, DM, oligio Patient reports: movement normal, no new complaints Objective - Vital Signs Vital Signs: Vital Signs - 12hr 06/26/17 06/26/17 06/26/17 05:59 06:00 09:56 Temperature 98.2 F Pulse Rate 73 78 Respiratory 18 Rate Blood Pressure 132/73 117/62 Blood Pressure [Left] O2 Sat by Pulse Oximetry 06/26/17 06/26/17 06/26/17 09:59 11:30 11:48 Temperature 97.6 F Pulse Rate 117 H 75 76 Respiratory Rate Blood Pressure 123/78 118/75 Blood Pressure 117/62 [Left] O2 Sat by Pulse Oximetry 06/26/17 06/26/17 06/26/17 11:55 11:56 11:58 Temperature Pulse Rate 83 78 76 Respiratory Rate Blood Pressure 119/79 119/76 Blood Pressure [Left] O2 Sat by Pulse 100 Oximetry 06/26/17 06/26/17 06/26/17 12:00 12:02 12:04 Temperature Pulse Rate 77 71 77 Respiratory Rate Blood Pressure 125/78 133/82 129/80 Blood Pressure [Left] O2 Sat by Pulse 100 Oximetry 06/26/17 06/26/17 06/26/17 12:05 12:06 12:08 Temperature Pulse Rate 77 77 82 Respiratory Rate Blood Pressure 144/83 144/88 Blood Pressure [Left] O2 Sat by Pulse 100 Oximetry 06/26/17 06/26/17 06/26/17 12:10 12:12 12:14 Temperature Pulse Rate 85 82 81 Respiratory Rate Blood Pressure 139/87 138/86 135/82 Blood Pressure [Left] O2 Sat by Pulse 99 Oximetry 06/26/17 06/26/17 06/26/17 12:15 12:16 12:17 Temperature Pulse Rate 82 93 H 34 L Respiratory Rate Blood Pressure 125/88 Blood Pressure [Left] O2 Sat by Pulse 98 86 Oximetry 06/26/17 06/26/17 06/26/17 12:18 12:20 12:22 Temperature Pulse Rate 82 84 83 Respiratory Rate Blood Pressure 129/81 128/86 130/82 Blood Pressure [Left] O2 Sat by Pulse 98 Oximetry 06/26/17 06/26/17 06/26/17 12:24 12:25 12:26 Temperature Pulse Rate 76 77 77 Respiratory Rate Blood Pressure 127/81 136/86 Blood Pressure [Left] O2 Sat by Pulse 98 Oximetry 06/26/17 06/26/17 06/26/17 12:28 12:30 12:35 Temperature Pulse Rate 76 76 85 Respiratory Rate Blood Pressure 133/83 Blood Pressure [Left] O2 Sat by Pulse 97 99 Oximetry 06/26/17 06/26/17 06/26/17 12:39 12:40 12:45 Temperature Pulse Rate 72 70 72 Respiratory Rate Blood Pressure 134/79 Blood Pressure [Left] O2 Sat by Pulse 97 97 Oximetry 06/26/17 06/26/17 06/26/17 12:48 12:49 12:50 Temperature Pulse Rate 68 70 69 Respiratory Rate Blood Pressure 133/81 Blood Pressure [Left] O2 Sat by Pulse 81 L 97 Oximetry 06/26/17 06/26/17 06/26/17 12:56 12:58 13:01 Temperature Pulse Rate 71 68 67 Respiratory Rate Blood Pressure 138/85 Blood Pressure [Left] O2 Sat by Pulse 98 100 Oximetry 06/26/17 06/26/17 06/26/17 13:06 13:08 13:11 Temperature Pulse Rate 69 68 70 Respiratory Rate Blood Pressure 139/86 Blood Pressure [Left] O2 Sat by Pulse 100 99 Oximetry 06/26/17 06/26/17 06/26/17 13:16 13:18 13:21 Temperature Pulse Rate 72 70 72 Respiratory Rate Blood Pressure 135/88 Blood Pressure [Left] O2 Sat by Pulse 99 99 Oximetry 06/26/17 06/26/17 06/26/17 13:26 13:28 13:31 Temperature Pulse Rate 75 71 73 Respiratory Rate Blood Pressure 154/86 Blood Pressure [Left] O2 Sat by Pulse 98 97 Oximetry 06/26/17 06/26/17 06/26/17 13:36 13:40 13:41 Temperature Pulse Rate 69 71 71 Respiratory Rate Blood Pressure 149/83 Blood Pressure [Left] O2 Sat by Pulse 99 97 Oximetry 06/26/17 06/26/17 06/26/17 13:46 13:51 13:56 Temperature Pulse Rate 72 71 75 Respiratory Rate Blood Pressure Blood Pressure [Left] O2 Sat by Pulse 97 99 98 Oximetry 06/26/17 06/26/17 06/26/17 14:01 14:06 14:11 Temperature Pulse Rate 74 76 71 Respiratory Rate Blood Pressure Blood Pressure [Left] O2 Sat by Pulse 98 97 97 Oximetry 06/26/17 06/26/17 06/26/17 14:15 14:16 14:17 Temperature 97.5 F L Pulse Rate 71 73 73 Respiratory 18 Rate Blood Pressure 148/85 Blood Pressure 148/85 [Left] O2 Sat by Pulse 99 99 Oximetry 06/26/17 06/26/17 06/26/17 14:21 14:26 14:31 Temperature Pulse Rate 72 71 71 Respiratory Rate Blood Pressure Blood Pressure [Left] O2 Sat by Pulse 99 98 98 Oximetry 06/26/17 06/26/17 06/26/17 14:36 14:41 14:46 Temperature Pulse Rate 72 70 71 Respiratory Rate Blood Pressure Blood Pressure [Left] O2 Sat by Pulse 96 97 97 Oximetry 06/26/17 06/26/17 06/26/17 14:49 14:51 14:56 Temperature Pulse Rate 71 70 72 Respiratory Rate Blood Pressure 135/82 Blood Pressure [Left] O2 Sat by Pulse 99 96 Oximetry 06/26/17 06/26/17 06/26/17 15:01 15:06 15:11 Temperature Pulse Rate 71 74 72 Respiratory Rate Blood Pressure Blood Pressure [Left] O2 Sat by Pulse 96 97 98 Oximetry 06/26/17 06/26/17 06/26/17 15:16 15:21 15:26 Temperature Pulse Rate 71 77 71 Respiratory Rate Blood Pressure Blood Pressure [Left] O2 Sat by Pulse 98 99 96 Oximetry 06/26/17 06/26/17 06/26/17 15:31 15:36 15:41 Temperature Pulse Rate 72 74 71 Respiratory Rate Blood Pressure Blood Pressure [Left] O2 Sat by Pulse 98 98 98 Oximetry 06/26/17 15:46 Temperature Pulse Rate 75 Respiratory Rate Blood Pressure Blood Pressure [Left] O2 Sat by Pulse 98 Oximetry - Exam Cardiovascular: Regular rate Lungs: Clear to auscultation, Normal air movement Abdomen: Present: normal appearance, soft. Absent: distention, tenderness Uterus: Present: normal FHR: auscultation normal, category 1 Uterine Contraction Monitor Mode: Internal Cervical Dilatation: 2 Cervical Effacement Percentage: 50 station: -2 Uterine Contraction Pattern: Regular Uterine Tone Measurement Phase: Contraction Uterine Contraction Intensity: Moderate Extremities: edema Deep Tendon Reflex Grade: Normal +2 - Labs Labs: Abnormal Labs 06/25/17 06/26/17 06/26/17 20:16 05:57 06:55 Creatinine 0.4 L POC Glucose 133 H 68 L Laboratory Results - last 24 hr 06/25/17 06/26/17 06/26/17 20:16 05:57 06:55 Creatinine 0.4 L Estimated GFR > 60 POC Glucose 133 H 68 L 06/26/17 12:56 Creatinine Estimated GFR POC Glucose 100
[2017-06-26] MEDS ORDERED: PEPCID IV NR (17:12)
[2017-06-26] MEDS ORDERED: BICITRA PO NR (17:12)
[2017-06-26] MEDS ORDERED: REGLAN IV NR (17:12)
--- NOTE | 2017-06-26 17:12 | Event Note ---
Date: 06/26/17 (no cervical chg X 5 hours) Explained all findings to pt and Discussed risks and necessity of operative intervention. Pt voiced understanding Consents signed. aware. C/S preop orders in EMR.
--- NOTE | 2017-06-26 17:36 | Event Note ---
Date: 06/26/17 32 yo f IUPat 37 weeks with failed induction for oligohydramnios. Options reviewed: continued SUSANNA vs C/S. She was informed that with SUSANNA she may become infected that may lead to poor /maternal prognosis. Also discussed c/s with risks for bleeding, infection, injury to bowel/bladder and possible need for c/s with all subsequent . She desires to proceed with c/s. Questions were encouraged and answered, consents were reviewed and signed. She voiced understanding.
[2017-06-26] MEDS ORDERED: PITOCin/NS 20 UNIT/1000ML DRIP 20 UNITS/1,000 ML BAG IV SCH ×2 (18:00→21:49)
[2017-06-26] MEDS ORDERED: ANCEF/STERILE WATER 2 GM/20 ML 2 GM/20 ML SYRINGE IV NR (18:00)
[2017-06-26] MEDS ORDERED: LACTATED RINGERS 1,000 ML IV SCH (18:00)
[2017-06-26] MEDS ORDERED: XYLOCAINE MPF 2% ONE ×2 (18:14→19:02)
[2017-06-26] MEDS ORDERED: ANCEF/STERILE WATER 2 GM/20 ML IV ONE (18:15)
[2017-06-26] MEDS ORDERED: ZOFRAN ONE (18:18)
[2017-06-26] MEDS ORDERED: WATER FOR IRRIG STERILE IR ONE (18:20)
[2017-06-26] MEDS ORDERED: NACL 0.9% IR ONE (18:20)
[2017-06-26] MEDS ORDERED: VERSED ONE (18:32)
[2017-06-26] MEDS ORDERED: METHERGINE IM ONE (18:44)
[2017-06-26] MEDS ORDERED: SUBLIMAZE ONE (19:02)
[2017-06-26] MEDS ORDERED: MORPHINE ONE (19:32)
--- NOTE | 2017-06-26 19:37 | Anesthesia Day of Surgery ---
Anesthesia Day of Surgery - Day of Surgery Patient Examined: Yes Patient H&P Reviewed: Yes Patient is NPO: Yes Dylan's Test: N/A
[2017-06-26] MEDS ORDERED: ZOFRAN IV PRN (19:38)
[2017-06-26] MEDS ORDERED: BENADRYL IV PRN ×2 (19:38→23:40)
--- NOTE | 2017-06-26 19:38 | Post Anesthesia Evaluation ---
- Post Anesthesia Evaluation Patient Participated: Yes Airway Patent: Yes Stable Respiratory Function: Yes Nausea/Vomiting: No Temp > 96.8F: Yes Pain Manageable: Yes Adequeate Hydration: Yes Anesthesia Complications: No Block Receding Appropriately: Yes Patient on Ventilator: No
[2017-06-26] MEDS ORDERED: MORPHINE IV PRN ×2 (19:39)
[2017-06-26] MEDS: TORADOL IV PRN (19:45)
[2017-06-26] MEDS ORDERED: SODIUM CHLORIDE FLUSH SYRINGE 10 ML IV NR (20:00)
[2017-06-26] MEDS ORDERED: D50W (25GM) Syringe IV PRN (20:00)
--- NOTE | 2017-06-26 20:09 | Operative Report ---
Operative Report Operative Report: Date: 06/26/2017 Preoperative diagnosis: 1. Intrauterine at 37 weeks 2. Oligohydramnios 3. Failed induction 4. Type 2 diabetes mellitus Postoperative diagnosis: 1. Intrauterine at 37 weeks 2. Oligohydramnios 3. Failed induction 4. Type 2 diabetes mellitus Procedure: Low uterine transverse incision for delivery Surgeon: Becca Liriano MD Station Attendant: Olive Ivy and Alison Guardado CNM Anesthesia: Epidural Anesthesiologist: Georgi Morales M.D. Estimated blood loss: 800 mL Urine out: 100 mL Findings: Live born male . Weight 6 lbs. 1 oz. Apgars 8 at 1 minute and 9 at 9 minutes. Uterus 4 cm intramural fibroid as well as a 2 cm posterior fundal pedunculated fibroid, tubes normal, ovaries normal. Procedure: After risk, benefits, complications, consequences and alternatives for this procedure were discussed with patient and consents were reviewed and signed, she was taken to the OR where epidural anesthesia was bolused. She was then placed in the left lateral tilt position, and prepped and draped in the usual sterile fashion. Timeout was performed, and an appropriate level of anesthesia was noted, a Pfannenstiel incision was made and extended to the fascia which was incised and extended in the lateral directions. The overlying fascia was sharply dissected away from the underlying rectus muscles in the superior and inferior directions. The midline was entered bluntly. The vesicouterine fold was incised and with blunt dissection the bladder flap was created. A transverse incision was made in the lower uterine segment and extended in superiolateral direction with finger fractionation. Scant clear fluid was noted. The infant was delivered from cephalic position with vacuum assistance at 55 mmHg with 1 attempt. Mouth and nose were bulb suctioned. Spontaneous cry and excellent tone were noted. Cord was doubly clamped and cut. The infant was given to /resuscitation team present. The placenta was manually extracted. The uterus was then exteriorized and cleared of any further products of conception or placental tissue. The incision was reapproximated using 0 Vicryl in a running interlocking stitch. Further hemostasis was obtained 0 Vicryl in interrupted [id number] fashion. Grossly normal tubes and ovaries were noted. Once hemostasis was noted, the uterus was allowed back into the pelvic cavity. The pelvis was irrigated with warm normal saline. Again hemostasis was noted . Surgicel applied for further hemostasis. Interceed was then placed to prevent adhesions. Then attention was turned to the rectus muscles. The rectus muscles reapproximated using 3-0 Vicryl in a simple interrupted stitch x 3. Once hemostasis was noted, the fascia was reapproximated using 0 Vicryl running stitch fashion. Once hemostasis was noted skin incision was reapproximated using 4-0 Vicryl on a Fran needle in a subcuticular manner. Counts were correct 3. Patient tolerated procedure well state recovery room in stable condition.
[2017-06-26 20:24] LABS: Alanine Aminotransferase 20 units/L (7-56); Uric Acid 4.1 mg/dL (3.5-7.6)
[2017-06-26] MEDS ORDERED: MAGNESIUM SULFATE 4GM/100ML 4 GM/100 ML BAG IV ONE ×2 (20:38→20:43)
[2017-06-26] MEDS ORDERED: APRESOLINE IV PRN (20:40)
[2017-06-26] MEDS ORDERED: MAGNESIUM SULFATE 40GM/1000ML 40 GM/1,000 ML BAG IV ONE (20:42)
--- NOTE | 2017-06-26 20:47 | Event Note ---
Date: 06/26/17 (BP elevated postoperative) [facility] labs ordered. BPs in PACU continue to be elevated despite pain meds. Upon my assessment pt denies any pain, denies [place], blurred vision, chest pain. BP @ time of assessment 163/94. Consulted with . MGSO4 ordered. Discussed findings and POC with pt all questions addressed. Voiced understanding and agreement with POC.
[2017-06-26] MEDS ORDERED: MAGNESIUM SULFATE 40GM/1000ML 40 GM/1,000 ML BAG IV SCH (21:00)
[2017-06-26] MEDS ORDERED: NACL 0.9% 1000 ML 1,000 ML IV SCH (21:49)
[2017-06-26] MEDS ORDERED: MYLICON PO PRN (21:49)
[2017-06-26] MEDS ORDERED: MILK OF MAGNESIA PO PRN (21:49)
[2017-06-26] MEDS ORDERED: ANCEF/NS 1 GM/50 ML 1 GM/50 ML BAG IV SCH (21:49)
[2017-06-26] MEDS ORDERED: TYLENOL PR PRN (21:49)
[2017-06-26] MEDS ORDERED: MOTRIN PO PRN (21:49)
[2017-06-26] MEDS ORDERED: LANSINOH TP PRN (21:49)
[2017-06-26] MEDS ORDERED: TUCKS PAD TP PRN (21:49)
[2017-06-26] MEDS ORDERED: PHENERGAN PR PRN (21:49)
[2017-06-26] MEDS ORDERED: TYLENOL PO PRN (21:49)
[2017-06-26] MEDS ORDERED: NARCAN 0.4 MG/1 ML IV PRN (21:49)
[2017-06-27] MEDS: ceFAZolin 1 GM in NACL 0.9% 20 ML IV SCH ×2 (02:28→10:08)
[2017-06-27] MEDS: TORADOL IV PRN ×2 (06:15→17:53)
--- NOTE | 2017-06-27 06:24 | Progress Note ---
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 P: continue MGSO4 due to d/c @ 2100 Continue pathway. (3) Blood pressure elevated without history of HTN Onset Date: ~06/27/17 Current Visit: Yes Status: Acute Plan to address problem: MGSO4 until 2100 Mag levels q6hrs Subjective - Subjective Date of service: 06/27/17 (pt in good spirits No c/o voiced) Principal diagnosis: Day# 1 s/p section; DM; elevated BP Patient reports: appetite normal, voiding normally, pain well controlled, ambulating normally [place]: in NICU (tachypenea) Objective - Vital Signs Latest vital signs: Vital Signs Temp Pulse Resp BP BP Pulse Ox 06/27/17 06:15 16 06/27/17 04:35 98.2 F 83 18 119/77 98 06/26/17 23:10 97.4 F L 78 18 133/83 98 06/26/17 21:00 77 15 135/89 98 06/26/17 20:55 98.6 F 79 14 146/87 97 06/26/17 20:50 82 14 137/91 98 06/26/17 20:45 80 12 147/91 98 06/26/17 20:40 79 20 157/94 99 06/26/17 20:35 81 23 153/93 98 06/26/17 20:30 79 19 150/91 98 06/26/17 20:25 77 20 163/94 97 06/26/17 20:20 76 20 162/94 99 06/26/17 20:15 78 18 153/92 97 /17/18 20:10 77 22 152/93 97 /17/18 20:06 79 18 140/70 98 /17/18 20:00 76 19 148/92 98 17/18 19:55 77 21 158/97 99 /17/18 19:50 77 20 160/95 98 /17/18 19:45 78 18 157/96 99 17/18 19:40 81 21 153/99 99 17/18 19:36 86 19 151/94 100 17/18 19:30 78 21 150/103 99 17/18 19:28 79 22 98 17/18 18:00 55 L 82 L 17/18 17:31 78 L 17/18 17:23 83 L 17/18 17:17 74 82 L 17/18 17:12 79 81 L 17/18 17:06 89 99 17/18 17:01 74 98 17/18 16:56 76 98 17/18 16:51 75 98 17/18 16:50 77 128/83 17/18 16:46 73 98 17/18 16:41 75 97 17/18 16:36 77 98 17/18 16:32 97.9 F 17/18 16:31 77 98 17/18 16:26 79 98 17/18 16:21 74 98 17/18 16:16 75 98 17/18 16:11 76 97 17/18 16:06 76 97 17/18 16:01 76 98 17/18 15:56 74 97 /17/18 15:51 75 98 /17/18 15:49 74 127/78 /17/18 15:46 75 98 /17/18 15:41 71 98 /17/18 15:36 74 98 /17/18 15:31 72 98 /17/18 15:26 71 96 /17/18 15:21 77 99 17/18 15:16 71 98 /17/18 15:11 72 98 /17/18 15:06 74 97 /17/18 15:01 71 96 17/18 14:56 72 96 /17/18 14:51 70 99 /17/18 14:49 71 135/82 17/18 14:46 71 97 /17/18 14:41 70 97 /17/18 14:36 72 96 17/18 14:31 71 98 17/18 14:26 71 98 17/18 14:21 72 99 17/18 14:17 97.5 F L 73 18 148/85 99 17/18 14:16 73 99 17/18 14:15 71 148/85 17/18 14:11 71 97 17/18 14:06 76 97 17/18 14:01 74 98 17/18 13:56 75 98 17/18 13:51 71 99 17/18 13:46 72 97 17/18 13:41 71 97 17/18 13:40 71 149/83 17/18 13:36 69 99 17/18 13:31 73 97 17/18 13:28 71 154/86 17/18 13:26 75 98 17/18 13:21 72 99 17/18 13:18 70 135/88 17/18 13:16 72 99 17/18 13:11 70 99 17/18 13:08 68 139/86 17/18 13:06 69 100 17/18 13:01 67 100 17/18 12:58 68 138/85 17/18 12:56 71 98 17/18 12:50 69 97 17/18 12:49 70 81 L 17/18 12:48 68 133/81 17/18 12:45 72 97 17/18 12:40 70 97 17/18 12:39 72 134/79 17/18 12:35 85 99 17/18 12:30 76 97 17/18 12:28 76 133/83 17/18 12:26 77 136/86 17/18 12:25 77 98 17/18 12:24 76 127/81 17/18 12:22 83 130/82 17/18 12:20 84 128/86 98 06/26/17 12:18 82 129/81 06/26/17 12:17 34 L 86 06/26/17 12:16 93 H 125/88 06/26/17 12:15 82 98 06/26/17 12:14 81 135/82 06/26/17 12:12 82 138/86 06/26/17 12:10 85 139/87 99 06/26/17 12:08 82 144/88 06/26/17 12:06 77 144/83 06/26/17 12:05 77 100 06/26/17 12:04 77 129/80 06/26/17 12:02 71 133/82 06/26/17 12:00 77 125/78 100 06/26/17 11:58 76 119/76 06/26/17 11:56 78 119/79 06/26/17 11:55 83 100 06/26/17 11:48 76 118/75 06/26/17 11:30 75 123/78 06/26/17 09:59 97.6 F 117 H 117/62 06/26/17 09:56 78 117/62 Intake and Output 06/26/17 06/26/17 06/27/17 14:59 22:59 06:59 Intake Total 545.895 2621.800 Output Total 1000 200 Balance 157.800 352.800 -200 Intake: IV 560.785 2194.800 Lactated Ringers 1,000 ml 116.667 @ 125 mls/hr IV DIRECT KANIKA Rx#:[id number] PITOCin/NS 30 UNIT/500ML 41.133 52.800 30 units In 500 ml @ 4 MILLIUNITS/MIN 4 mls/hr IV Q30MIN KANIKA Rx#: [id number] Output: Urine 1000 200 Void 800 200 Other: Total, Output Amount 800 200 Estimated Blood Loss 800 - Exam Breasts: Present: normal Cardiovascular: Present: Regular rate Lungs: Present: Normal air movement Abdomen: Present: normal appearance, soft, normal bowel sounds Uterus: Present: normal, firm, fundal height below umbilicus Extremities: Present: normal, edema Deep Tendon Reflex Grade: Normal +2 Incision: Present: normal, dry, intact, dressed - Labs Labs: Abnormal lab results 06/26/17 06/26/17 06/27/17 Range/Units 06:55 19:50 02:20 Creatinine 0.4 L 0.5 L (0.7-1.2) mg/dL Magnesium 4.50 H (1.7-2.3) mg/dL Lactate Dehydrogenase 215 H (91-180) units/L
[2017-06-27 08:42] LABS: Hemoglobin 9.5 gm/dl (10.1-14.3)
[2017-06-27] MEDS: GLUCOPHAGE PO SCH (19:40)
[2017-06-28] MEDS: PERCOCET 5/325 PO PRN ×3 (00:13→12:35)
[2017-06-28] MEDS ORDERED: BOOSTRIX IM ONE (06:00)
--- NOTE | 2017-06-28 08:10 | Discharge Summary ---
Providers - Providers Date of Admission: 06/24/17 16:19 Date of discharge: 06/28/17 Attending physician: RAULITO STORM 06/26/17 21:49 Consult to Consulting Systems Engineer [CONS] Routine Reason For Exam: Primary care physician: GABRIELA KELLER Hospitalization Reason for admission: Induction of labor for Oliohydramnios, DM Condition: Good Procedures: primary c/s after unsuccessful induction Hospital course: uncomplicated c/s Disposition: - TO HOME OR SELFCARE - Discharge Diagnoses (1) Diabetes type 2, uncontrolled Status: Acute Qualifiers: Diabetes mellitus complication status: without complication Diabetes mellitus senior living insulin use: without senior living use Qualified Code(s): E11.65 - Type 2 diabetes mellitus with hyperglycemia (2) delivery delivered Status: Acute Core Measure Documentation - Palliative Care Palliative Care/ Comfort Measures: Not Applicable - Core Measures Any of the following diagnoses?: none Exam - Constitutional Vitals: Temp Pulse Resp BP Pulse Ox 98.8 F 80 20 103/63 100 06/28/17 00:37 06/28/17 00:37 06/28/17 06:06 06/28/17 00:37 06/28/17 00:37 General appearance: Present: no acute distress - EENT Eyes: Present: PERRL ENT: hearing intact, clear oral mucosa - Neck Neck: Present: supple, normal ROM - Respiratory Respiratory effort: normal Respiratory: bilateral: CTA - Cardiovascular Heart Sounds: Present: S1 & S2. Absent: rub, click - Extremities Extremities: pulses symmetrical, No edema - Abdominal General gastrointestinal: Present: soft, non-tender, distended (pt has yet to pass warren, rn will give meds to help pt pass gas) Female genitourinary: Present: normal - Integumentary Integumentary: Present: clear, warm, dry - Musculoskeletal Musculoskeletal: gait normal, strength equal bilaterally - Psychiatric Psychiatric: appropriate mood/affect, intact judgment & insight - Neurologic Neurologic: CNII-XII intact, moves all extremities - Additional findings Additional findings: Fundus firm, lochia scant, incision D&I Plan Activity: advance as tolerated Weight Bearing Status: Full Weight Bearing Diet: regular Wound: open to air, keep clean and dry Follow up with: GABRIELA KELLER MD [Primary Care Provider] - 7 Days SANDI NORRIS MD [Staff Physician] - 7 Days (Congratulations! Please call [phone] to schedule your incision check and your son's circumcision in 1 week. Bring EMLA cream to your son's appointment and await further instructions. Call for any questions or concerns.) Prescriptions: Ibuprofen [Motrin 800 MG tab] 800 mg PO TID PRN #30 tablet PRN Reason: Pain Lidocain2.5%/Prilocai2.5% [Emla] 5 gm TP ONCE #1 tube oxyCODONE /ACETAMINOPHEN [Percocet 5/325 mg] 1 - 2 tab PO Q4HR PRN #30 tablet PRN Reason: Pain
[2017-06-28 10:11] VITALS: BP 97/63
[2017-06-28] MEDS ORDERED: DULCOLAX PR PRN (10:35)
[2017-06-28] MEDS ORDERED: HYDROGEN PEROXIDE ONE (12:25)
[2017-06-28] MEDS: GLUCOPHAGE PO SCH (12:30)
== END 2017-06-28 17:23 | disposition home or self-care (01) | DRG 765 ==
LOC: LD 16:19 → OB 06-26 21:45
PROVIDERS: ADMIT Obstetrics & Gynecology; ATTEND Obstetrics & Gynecology
PROC: 10D00Z1 Extraction of Products of Conception, Low, Open Approach (ICD-10-PCS; principal; 2017-06-26)
PROC: 3E0234Z Introduction of Serum, Toxoid and Vaccine into Muscle, Percutaneous Approach (ICD-10-PCS; 2017-06-28)
DX: O41.03X0 Oligohydramnios, third trimester, not applicable or unspecified (principal); O24.12 Pre-existing type 2 diabetes mellitus, in childbirth; E11.8 Type 2 diabetes mellitus with unspecified complications; O99.214 Obesity complicating childbirth; E66.9 Obesity, unspecified; Z68.35 Body mass index [BMI] 35.0-35.9, adult; Z3A.37 37 weeks gestation of pregnancy; Z37.0 Single live birth; Z79.84 Long term (current) use of oral hypoglycemic drugs; O61.8 Other failed induction of labor; Z23 Encounter for immunization
CPT/HCPCS: 36415; 82565; 82962; 83615; 83735; 84450; 84460; 84550; 85014; 85018; 85027; 85049; 86592; 86850; 86900; 86901; 88307; 99211; C1765; G0463; J0595; J0690; J1200; J1885; J2210; J2250; J2270; J2405; J2590; J2765; J3010; J3475; J7030; J7120